=== PATIENT | female | born 1980 | race Caucasian/White ===

== ENCOUNTER 2016-07-06 06:35 | Inpatient (IN) | payer OTHER ==
[~2016-07-06] VITALS: Ht 162.6 cm; Wt 82.7 kg
--- NOTE | ~2016-07-06 | HP ---
ADMIT: 07/06/2016 RM/LOC: 201 [facility] MR#: [id number] [facility] [address] [place] [id number] April [facility] [place] [address] History and Physical SEX: F AGE: 36 : 1980 DATE OF SERVICE: CHIEF COMPLAINT: Induction of labor. HISTORY OF PRESENT ILLNESS: The patient is a 36-year-old, 3, para 2-0- 0-2, with intrauterine at 39-4/7th weeks by last menstrual period consistent with an 8-week ultrasound, who presents to Labor and Delivery for elective induction of labor. PAST MEDICAL HISTORY: 1. Excessive weight gain during . 2. Short interval between pregnancies. 3. History of vacuum extraction in previous . PAST SURGICAL HISTORY: 1. Right breast lumpectomy at age 18. 2. Tonsillectomy age 18. FAMILY HISTORY: No diabetes, hypertension, or cancer. SOCIAL HISTORY: The patient denies alcohol, tobacco, or illicit drug use. 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 MEDICATIONS: vitamins 1 tablet p.o. daily. ALLERGIES: NO KNOWN MEDICAL ALLERGIES. REVIEW OF SYSTEMS: The patient denies loss of fluid, vaginal bleeding, or decreased movement. She did feel regular uterine contractions overnight last night. OBSTETRICAL LABS: Blood type O positive, antibody screen negative, RPR nonreactive, rubella immune, HIV negative, gonorrhea and chlamydia negative. Hepatitis B surface antigen negative. Diabetic screen 140. Three-hour glucose tolerance test 83, 132, 108, 89. Pap smear negative for intraepithelial lesion or malignancy. High-risk HPV not detected. Group B strep negative. PHYSICAL EXAMINATION: GENERAL: Well-developed, well-nourished white female, alert and oriented x3, in no acute distress. VITAL SIGNS: Blood pressure 126/72, pulse 62, respirations 16, temperature 96.7 degrees Fahrenheit. Height 5 feet 4 inches, weight 186 pounds. HEENT: Head is normocephalic, atraumatic. Pupils are equal, round, reactive. Extraocular muscles are intact. NECK: Supple. Trachea midline. Thyroid not palpable. HEART: Regular rate and rhythm. LUNGS: Clear to auscultation bilaterally. ABDOMEN: Soft, nontender, and gravid. EXTREMITIES: 1+ edema bilaterally. ADMIT: 07/06/2016 RM/LOC: 201 [facility] MR#: [id number] [address] [id number] [place] [address] History and Physical SEX: F AGE: 36 : 1980 NEUROLOGIC: Cranial nerves II through XII grossly intact. 2+ deep tendon reflexes noted. PELVIC: Sterile vaginal examination by the nurse on admission reveals the cervix to be 3 cm dilated, 60% effaced, -2 station. heart tones are in the 140s with 15 x 15 accelerations, moderate long-term variability, and no decelerations. Irregular uterine contractions noted on the monitor. ASSESSMENT AND PLAN: 1. This is a 36-year-old, 3, para 2-0-0-2, with an intrauterine at 39-4/7th weeks by last menstrual period consistent with an 8- week ultrasound, who presents to Labor and Delivery for elective induction of labor at term. 2. Group B strep negative. No prophylaxis will be provided. 3. Fetus is vertex and overall reassuring. Renetta Orellana MD/ tomy JOB #: [id number] CC: Renetta Orellana MD, Attending Physician NO FAMILY PHYSICIAN, Family Physician
--- NOTE | ~2016-07-06 | FD ---
ADMIT: 07/06/2016 RM/LOC: 201 [facility] MR#: [id number] [facility] [address] [place], [place] [phone] [place] [facility] [place] [address] Final Diagnosis SEX: F AGE: 36 : 1980 ADMISSION DATE: 07/06/2016 DISCHARGE DATE: 07/08/2016 FINAL DIAGNOSES: 1. Status post spontaneous vaginal delivery. 2. Excessive weight gain during . 3. Short interval between pregnancies. 4. History of vacuum delivery in previous . PROCEDURE: Spontaneous vaginal delivery. Renetta Orellana MD/ crista JOB #: [id number] CC: Renetta Orellana MD, Attending Physician FAMILY PHYSICIAN, Family Physician
[2016-07-09] MEDS ORDERED: PRENATAL VIT1 TAB PO (10:00)
--- NOTE | 2016-08-11 03:27 | OR ---
ADMIT: 07/06/2016 RM/LOC: 201 [facility] MR#: [id number] [address] [facility] [address] [place] [id number] [place] [facility] [place] [address] Operative/Delivery Room Report SEX: F AGE: 36 : 1980 SURGERY DATE: 07/06/2016 SURGEON: Renetta Orellana MD The patient delivered a viable female by spontaneous vaginal delivery at 1832 hours. A nuchal cord x1 was reduced. The infant was placed on the mother's abdomen, and the cord was doubly clamped and cut. The infant was handed off to the awaiting nurse. Cord blood was sent. The 's weight was 3380 g. scores were 9 and 10. The placenta then delivered spontaneously intact with a three-vessel cord. Twenty units of Pitocin were infused with intravenous fluids. An examination of the perineum revealed no lacerations. Estimated blood loss for the entire procedure was 300 mL. The patient and infant are in her room in stable condition. The epidural catheter was removed intact without difficulty at the conclusion of the procedure. Renetta Orellana MD/ tomy JOB #: [id number] CC: Renetta Orellana MD, Attending Physician NO FAMILY PHYSICIAN, Family Physician
== END 2016-07-08 10:30 | disposition home or self-care (01) | DRG 775 ==
LOC: 2LDRP 06:35 → BC 06:35 → 2LDRP 06:36 → BC 07-08 08:00 → 2LDRP 07-08 10:30
PROVIDERS: ADMIT Obstetrics & Gynecology
PROC: 10E0XZZ Delivery of Products of Conception, External Approach (ICD-10-PCS; principal; 2016-07-06)
DX: O69.81X0 Labor and delivery complicated by cord around neck, without compression, not applicable or unspecified (principal); O26.03 Excessive weight gain in pregnancy, third trimester; Z3A.39 39 weeks gestation of pregnancy; Z37.0 Single live birth